=== PATIENT | female | born 1975 | race Two or more races ===

== ENCOUNTER 2016-03-01 02:49 | Emergency (ER) | payer OTHER ==
[2016-03-01] MEDS ORDERED: NS 0.9% 1000 ML* 1,000 ML IV ONE (02:57)
[2016-03-01 03:20] LABS: Hematocrit 38 % (35-47); Hemoglobin 12.8 g/dl (12.0-16.0); Mean Corpuscular HGB Conc 34 g/dl (31-36); Mean Corpuscular Hemoglobin 27 pg (27-31); Mean Corpuscular Volume 81 fL (80-97); Mean Platelet Volume 9 um3 (7.4-10.4); Red Blood Count 4.73 10^6/ul (4.0-5.4); Red Cell Distribution Width 14 % (10.5-15); White Blood Count 9.9 10^3/ul (3.5-10.8)
[2016-03-01 03:21] LABS: Add Diff/Slide Review? Slide Review Added; Comments Flag Yes
[2016-03-01 03:34] LABS: BUN/Creatinine Ratio 19.4 (8-20); Calcium 8.9 mg/dL (8.6-10.3); EGFR African American 125.4 (>60); EGFR Non-African American 97.5 (>60); Globulin 3.1 g/dL (2-4); Potassium 3.5 mmol/L (3.5-5.0); Total Bilirubin 0.2 mg/dL (0.2-1.0); Total Protein 7.1 g/dL (6.4-8.9)
[2016-03-01 04:07] LABS: TSH (Thyroid Stimulating Horm) 0.6 mcIU/mL (0.34-5.60)
--- NOTE | 2016-03-01 04:39 | ED ---
Mallika Hoover Anna, scribed for Pippa Doe MD on 03/01/16 at 0302 . Palpitations / Dysrhythmia - HPI Summary HPI Summary: Patient is a 40 y/o female BIBA to [facility] presenting with sudden onset of heart palpitations that began last evening at 18:00 while she was drinking tea and coffee. This was spontaneously resolved. Today she additionally feels back pain , BLAIR, and pain in the back of her neck. She fell in January twice and hit her head. She denies BLAIR or dizziness at that time. Since then, she has experienced intermittent BLAIR, dizziness, and blurred vision for the last two weeks. She reports no medical problems and does not smoke. - History of Current Complaint Hx Obtained From: Patient, EMS Onset/Duration: Sudden Onset, Lasting Minutes, Resolved - Allergy/Home Medications Allergies/Adverse Reactions: Allergies Allergy/AdvReac Type Severity Reaction Status Date / Time Ibuprofen [From Motrin] Allergy Anaphylatic Verified 03/01/16 02:58 Shock PMH/Surg Hx/FS Hx/Imm Hx Previously Healthy: Yes Endocrine/Hematology History: Denies: Hx Diabetes Infectious Disease History: No Infectious Disease History: Denies: Traveled Outside the [place] in Last 30 Days - Family History Known Family History: Negative: Diabetes - Social History Occupation: Employed Full-time Lives: With Family Alcohol Use: None Hx Substance Use: No Hx Tobacco Use: No Review of Systems Constitutional: Negative Positive: Blurred Vision ENT: Negative Positive: Palpitations Respiratory: Negative Gastrointestinal: Negative Genitourinary: Negative Musculoskeletal: Negative Skin: Negative Neurological: Other - dizziness Positive: Headache Psychological: Normal All Other Systems Reviewed And Are Negative: Yes Physical Exam Triage Information Reviewed: Yes Vital Signs On Initial Exam: Initial Vitals Temp Pulse Resp BP Pulse Ox 98.8 F 67 16 150/91 98 03/01/16 02:56 03/01/16 02:56 03/01/16 02:56 03/01/16 02:56 03/01/16 02:56 Vital Signs Reviewed: Yes Appearance: Positive: Well-Appearing, No Pain Distress Skin: Positive: Warm, Skin Color Reflects Adequate Perfusion, Dry Eyes: Positive: EOMI, GILBERT ENT: Positive: Pharynx normal, TMs normal Neck: Positive: Supple, Nontender Respiratory/Lung Sounds: Positive: Clear to Auscultation, Breath Sounds Present. Negative: Rales, Rhonchi, Wheezes Cardiovascular: Positive: RRR, Other - no gallops. Negative: Murmur, Rub Abdomen Description: Positive: Nontender, Soft, Other: - no rebound. Negative: Distended, Guarding Bowel Sounds: Positive: Present Musculoskeletal: Positive: Strength/ROM Intact. Negative: Edema Left, Edema Right Neurological: Positive: Sensory/Motor Intact, Alert, Oriented to Person Place, Time, CN Intact II-III - II-XII Psychiatric: Positive: Affect/Mood Appropriate Diagnostics - Vital Signs Vital Signs Temp Pulse Resp BP Pulse Ox 03/01/16 02:56 98.8 F 67 16 150/91 98 - Laboratory Lab Results: Lab Results 03/01/16 03/01/16 03/01/16 Range/Units 03:08 03:08 03:08 WBC 9.9 (3.5-10.8) 10^3/ul RBC 4.73 (4.0-5.4) 10^6/ul Hgb 12.8 (12.0-16.0) g/dl Hct 38 (35-47) % MCV 81 (80-97) fL MCH 27 (27-31) pg MCHC 34 (31-36) g/dl RDW 14 (10.5-15) % Plt Count 242 (150-450) 10^3/ul MPV 9 (7.4-10.4) um3 Neut % (Auto) 79.1 (38-83) % Lymph % (Auto) 10.2 L (25-47) % [place] % (Auto) 5.4 (1-9) % Eos % (Auto) 1.0 (0-6) % Baso % (Auto) 4.3 H (0-2) % Absolute Neuts (auto) 7.8 H (1.5-7.7) 10^3/ul Absolute Lymphs (auto) 1.0 (1.0-4.8) 10^3/ul Absolute Monos (auto) 0.5 (0-0.8) 10^3/ul Absolute Eos (auto) 0.1 (0-0.6) 10^3/ul Absolute Basos (auto) 0.4 H (0-0.2) 10^3/ul Absolute Nucleated RBC 0 10^3/ul Nucleated RBC % 0 Sodium 135 (133-145) mmol/L Potassium 3.5 (3.5-5.0) mmol/L Chloride 104 (101-111) mmol/L Carbon Dioxide 26 (22-32) mmol/L Anion Gap 5 (2-11) mmol/L BUN 13 (6-24) mg/dL Creatinine 0.67 (0.51-0.95) mg/dL Est GFR ( Amer) 125.4 (>60) Est GFR (Non-Af Amer) 97.5 (>60) BUN/Creatinine Ratio 19.4 (8-20) Glucose 121 H (70-100) mg/dL Lactic Acid 0.8 (0.5-2.0) mmol/L Calcium 8.9 (8.6-10.3) mg/dL Magnesium 2.0 (1.9-2.7) mg/dL Total Bilirubin 0.20 (0.2-1.0) mg/dL AST 17 (13-39) U/L ALT 27 (7-52) U/L Alkaline Phosphatase 60 (34-104) U/L Troponin I 0.00 (<0.04) ng/mL Total Protein 7.1 (6.4-8.9) g/dL Albumin 4.0 (3.2-5.2) g/dL Globulin 3.1 (2-4) g/dL Albumin/Globulin Ratio 1.3 (1-3) TSH 0.60 (0.34-5.60) mcIU/mL Result Diagrams: 03/01/16 03:08 03/01/16 03:08 Lab Statement: Any lab studies that have been ordered have been reviewed, and results considered in the medical decision making process. - CT Brain CT CT Interpretation: No Acute Changes CT Interpretation Completed By: Radiologist - Impression: No acute brain parenchymal abnormality. No hemorrhage, mass, or acute territorial infarct. Clear visualized paranasal sinuses. Visualized mastoid air cells clear. - EKG 3:09 Cardiac Rate: NL - 61 bpm EKG Rhythm: Sinus Rhythm ST Segment: Normal Ectopy: None Course/Dx - Course Course Of Treatment: 40 yo female who describes intermittent palpitations and some blair's with dizziness none happening now but did have one time palpitation earlier on monday. These symptoms started about two wks ago with a fall. I doubt aneurysm or dissection given that she is assymptomatic at the current time. She does not have a pmd and she is being discharged with a referral to get one - Diagnoses Provider Diagnoses: Dizzy, Palpitations Discharge - Discharge Plan Condition: Stable Disposition: HOME The documentation as recorded by the Mallika dudley Anna accurately reflects the service I personally performed and the decisions made by me, Pippa Doe MD.
[2016-03-01 04:49] VITALS: BP 146/81
--- NOTE | 2016-03-01 08:04 | RAD ---
INDICATION: Headaches COMPARISON: None TECHNIQUE: Noncontrast axial source images were acquired from the skull base to the vertex. FINDINGS: Ventricles/sulci: The ventricles and cisterns are normal in size and configuration for age. Brain parenchyma: There is no focal parenchymal finding, evidence of intracranial mass, or intracranial mass effect. Intracranial hemorrhage:None. Extra-axial spaces: There are no abnormal extra axial fluid collections or evidence of extra-axial mass. Calvarium: There is no calvarial fracture or other calvarial abnormality. Scalp: There is no evidence of scalp or extracalvarial soft tissue abnormality. Paranasal sinuses/mastoid: The paranasal sinuses and mastoid air cells are clear. Other: None. IMPRESSION: NO ACUTE INTRACRANIAL FINDINGS
== END 2016-03-01 04:48 | disposition home or self-care (01) ==
LOC: ED 02:49
DX: R00.2 Palpitations (principal); R42 Dizziness and giddiness
CPT/HCPCS: 36415; 70450; 80053; 83605; 83735; 84443; 84484; 85025; 96360; 99282

== ENCOUNTER 2017-10-02 00:09 | Emergency (ER) | payer OTHER ==
[2017-10-02] MEDS ORDERED: diPHENhydraMINE PO* 50 MG PO ONE (00:28)
[2017-10-02] MEDS ORDERED: Famotidine TAB* 20 MG PO ONE (00:33)
[2017-10-02] MEDS ORDERED: predniSONE TAB* 20 MG PO ONE (00:33)
--- OUTSIDE RECORDS SUMMARY | 2017-10-02 00:46 | XMS REPORT ---
:1975 External Reference #:[id number] Author Organization Viktor Pinon M.D., [facility] Address 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 Nargis Aragon MD Primary Care Physician Unavailable Payers Type Date Identification Numbers Payment Provider Subscriber Health Maintenance Policy Number: [id number] [facility] Anette Cummings [facility] (HMO) PayID: [id number] [address] [place] [address] Problems Description No Information Family History Date Family Member(s) Problem(s) Comments Father Noncontributory Mother Noncontributory Social History Type Date Description Comments ETOH Use Never used alcohol Smoking Patient has never smoked Allergies, Adverse Reactions, Alerts Date Description Reaction Status Severity Comments 05/11/2016 Motrin active Medications Medication Date Status Form Strength Qnty SIG Indications Ordering Provider No Active 05/11/2016 Active Unknown Medications Vital Signs Date Vital Result Comment 09/08/2017 Intraocular Pressure Right Eye 15 mmHg Intraocular Pressure Left Eye 15 mmHg 05/11/2016 Intraocular Pressure Right Eye 15 mmHg Intraocular Pressure Left Eye 15 mmHg Results Description No Information Procedures Date CPT Code Description Status 09/08/2017 72804 Refraction Completed 09/08/2017 06539 Eye Exam Est Intermediate Completed 05/11/2016 91460 Refraction Completed 05/11/2016 41997 Eye Exam New Intermediate Completed Plan of Care Future Appointment(s):09/11/2017 9:00 am - [facility] Johzjjbciu96/27/2018 - Misha Matos, ODH52.4 [id number] Dry eye syndrome of bilateral lacrimal glandsFollow up:yearly full, sooner PRN
--- NOTE | 2017-10-02 01:08 | ED ---
Allergic Reaction/Systemic - HPI Summary HPI Summary: 42-year-old female presents with multiple bee stings across body. They happened 3 hours prior to arrival. She states that she is having increasing pain and redness to her bee stings. She admits to some scratchiness in her throat. She denies abdominal pain. She denies any nausea vomiting. denies Any chest tightness or shortness breath. She has never had allergic reaction to bees before. Has no medical conditions. - History of Current Complaint Chief Complaint: EDAllergicReaction Time Seen by Provider: 10/02/17 00:27 Pain Intensity: 7 - Allergies/Home Medications Allergies/Adverse Reactions: Allergies Allergy/AdvReac Type Severity Reaction Status Date / Time ibuprofen Allergy Unknown Verified 10/02/17 00:20 Reaction Details PMH/Surg Hx/FS Hx/Imm Hx Endocrine/Hematology History: Denies: Hx Diabetes Infectious Disease History: No Infectious Disease History: Denies: Traveled Outside the [place] in Last 30 Days - Family History Known Family History: Negative: Diabetes - Social History Alcohol Use: None Hx Substance Use: No Substance Use Type: Reports: None Hx Tobacco Use: No Smoking Status (MU): Never Smoked Tobacco Review of Systems Negative: Fever Positive: Sore Throat Negative: Chest Pain Negative: Shortness Of Breath Positive: Rash All Other Systems Reviewed And Are Negative: Yes Physical Exam Triage Information Reviewed: Yes Vital Signs On Initial Exam: Initial Vitals Temp Pulse Resp BP Pulse Ox 99.0 F 65 18 146/91 95 10/02/17 00:17 10/02/17 00:17 10/02/17 00:17 10/02/17 00:17 10/02/17 00:17 Vital Signs Reviewed: Yes Appearance: Positive: Well-Appearing Skin: Positive: Warm, Dry, Other - multiple bee stings with surrounding erythema Head/Face: Positive: Normal Head/Face Inspection Eyes: Positive: Normal, EOMI, GILBERT, Conjunctiva Clear ENT: Positive: Normal ENT inspection, Pharynx normal, TMs normal Respiratory/Lung Sounds: Positive: Clear to Auscultation, Breath Sounds Present Cardiovascular: Positive: Normal, RRR Abdomen Description: Positive: Nontender, Soft Bowel Sounds: Positive: Present Musculoskeletal: Positive: Normal Neurological: Positive: Normal Psychiatric: Positive: Normal Diagnostics - Vital Signs Vital Signs Temp Pulse Resp BP Pulse Ox 10/02/17 00:39 72 97 10/02/17 00:37 72 137/108 97 10/02/17 00:17 99.0 F 65 18 146/91 95 - Laboratory Lab Statement: Any lab studies that have been ordered have been reviewed, and results considered in the medical decision making process. Re-Evaluation - Re-Evaluation First Eval Re-Evaluation Time: 01:30 Change: Improved Comment: Scratchiness in throat is gone. urticaria is less. Lungs clear to auscultation. Allergic Reaction Course/Dx - Course Course Of Treatment: 42-year-old female presents with multiple bee stings across body. They happened 3 hours prior to arrival. She states that she is having increasing pain and redness to her bee stings. She admits to some scratchiness in her throat. She denies abdominal pain. She denies any nausea vomiting. denies Any chest tightness or shortness breath. She has never had allergic reaction to bees before. Has no medical conditions. On exam has urticaria around multiple bee stings. Gave prednisone and Benadryl and feeling better. We'll discharge with such. Patient understands agrees with plan. - Diagnoses Provider Diagnoses: Bee sting Discharge - Sign-Out/Discharge Documenting (check all that apply): Patient Departure - Discharge Plan Condition: Good Disposition: HOME Prescriptions: Famotidine TAB* [Pepcid 20 MG TAB*] 20 mg PO BID #8 tab hydrOXYzine HCL TAB* [Atarax 25 MG TAB*] 25 mg PO QID PRN #16 tab PRN Reason: Hives predniSONE TAB* [Deltasone TAB*] 50 mg PO DAILY #4 tab Patient Education Materials: Urticaria (ED) Referrals: Nargis Aragon MD [Primary Care Provider] - Additional Instructions: Take hydroxyzine every 6 hours Take Pepcid twice a day for 5 days Take steroid once a day for 4 days starting tomorrow Return to ED if develop any new or worsening symptoms - Billing Disposition and Condition Condition: GOOD Disposition: Home
[2017-10-02 01:46] VITALS: BP 120/95
== END 2017-10-02 01:47 | disposition home or self-care (01) ==
LOC: ED 00:09
DX: T63.441A Toxic effect of venom of bees, accidental (unintentional), initial encounter (principal); Y92.9 Unspecified place or not applicable
CPT/HCPCS: 99282; A9270-GY; J7512